=== PATIENT | female | born 1960 | race Caucasian/White ===

== ENCOUNTER 2018-08-20 10:23 | Emergency (ER) | payer OTHER ==
[~2018-08-20] VITALS: Ht 165.1 cm; Wt 72.6 kg
[~2018-08-20 10:23] MED LIST: ALBU90OI INH; ALBU90OI6 INH; AMOX500 PO; AZIT250 PO; Amoxicillin500 MG PO; Antivert25 MG PO; CODGUAEL PO; DICY20 PO; HYDACE10B PO; HYDACE5 PO; OXYACE5T PO; PRED20 PO; PROCODE120 PO; PSEU120ER PO; Prednisone20 MG PO; RANI150 PO; TRIM250 PO; Ultram50 MG PO
[2018-08-20 10:49] LABS: BASOPHILS ABSOLUTE AUTO 0.03 K/mm3 (0.00-0.23); BASOPHILS PERCENT AUTO 0 % (0-2); EOSINOPHILS ABSOLUTE AUTO 0.03 K/mm3 (0.00-0.68); EOSINOPHILS PERCENT AUTO 0 % (0-6); Hematocrit 37.1 % (33.0-51.0); Hemoglobin 12.8 g/dL (11.5-16.0); IMMATURE GRAN ABSOLUTE AUTO 0.03 K/mm3 (0.00-0.10); IMMATURE GRAN PERCENT AUTO 0 % (0-1); LYMPHOCYTES ABSOLUTE AUTO 2.82 K/mm3 (0.84-5.20); LYMPHOCYTES PERCENT AUTO 22 % (21-46); MONOCYTES ABSOLUTE AUTO 1.01 K/mm3 (0.16-1.47); MONOCYTES PERCENT AUTO 8 % (4-13); Mean Corpuscular HGB 31.9 pg (26.0-34.0); Mean Corpuscular HGB Conc 34.5 g/dL (31.5-36.5); Mean Corpuscular Volume 93 fL (80-100); NEUTROPHILS ABSOLUTE AUTO 8.77 K/mm3 (1.96-9.15); NEUTROPHILS PERCENT AUTO 69 % (41-73); Platelet Count 232 K/mm3 (150-400); RDW Coefficient Variation 11.8 % (11.7-14.2); RDW Standard Deviation 40.1 fL (35.1-46.3); Red Blood Cell Count 4.01 M/mm3 (3.80-5.20); White Blood Cell Count 12.69 K/mm3 (4.00-11.30)
[2018-08-20 11:18] LABS: Alanine Aminotransfer (ALT/SGP 112 U/L (12-78); Albumin, Blood 3.1 g/dL (3.4-5.0); Albumin/Globulin Ratio 0.7 (0.8-1.8); Alk Phos 103 U/L (50-136); Anion Gap 5 mmol/L (6-16); Aspartate Aminotrans (AST/SGOT 83 U/L (12-37); Bilirubin, Total 1.1 mg/dL (0.1-1.0); Blood Urea Nitrogen 23 mg/dL (8-24); Bun/Creatinine Ratio 40.3 (12.0-20.0); CO2, Blood 29 mmol/L (21-32); Calcium, Blood 8.6 mg/dL (8.5-10.1); Chloride, Blood 100 mmol/L (98-108); Creatinine, Blood 0.57 mg/dL (0.40-1.00); Globulin, Blood 4.3 g/dL (2.2-4.0); Glomerular Filtration Rate >60 (60-); Glucose, Blood 121 mg/dL (70-99); Potassium, Blood 3.9 mmol/L (3.5-5.5); Sodium, Blood 134 mmol/L (136-145); Total Protein, Blood 7.4 g/dL (6.4-8.2)
[2018-08-20] MEDS ORDERED: Protonix40 MG PO (12:35)
[2018-08-20] MEDS ORDERED: SUCR1 PO (12:35)
== END 2018-08-20 13:00 | disposition home or self-care (01) ==
LOC: ER 10:23
PROVIDERS: Emergency Medicine
DX: K29.70 Gastritis, unspecified, without bleeding (principal); K21.9 Gastro-esophageal reflux disease without esophagitis; Z88.5 Allergy status to narcotic agent
CPT/HCPCS: 36415; 80053; 83690; 85025; 93005; 93010; 96361; 96374; 99284-25; J2405; J7030

== ENCOUNTER 2022-06-11 11:15 | Emergency (ER) | payer OTHER ==
[~2022-06-11] VITALS: Ht 165.1 cm; Wt 68.0 kg
[~2022-06-11 11:15] MED LIST changes: +Protonix40 MG PO; +SUCR1 PO
[2022-06-11 12:53] LABS: BASOPHILS ABSOLUTE AUTO 0.04 K/mm3 (0.00-0.23); BASOPHILS PERCENT AUTO 1 % (0-2); EOSINOPHILS ABSOLUTE AUTO 0.12 K/mm3 (0.00-0.68); EOSINOPHILS PERCENT AUTO 2 % (0-6); Hematocrit 33.8 % (33.0-51.0); Hemoglobin 11.3 g/dL (11.5-16.0); IMMATURE GRAN ABSOLUTE AUTO 0.02 K/mm3 (0.00-0.10); IMMATURE GRAN PERCENT AUTO 0 % (0-1); LYMPHOCYTES ABSOLUTE AUTO 1.77 K/mm3 (0.84-5.20); LYMPHOCYTES PERCENT AUTO 23 % (21-46); MONOCYTES ABSOLUTE AUTO 0.61 K/mm3 (0.16-1.47); MONOCYTES PERCENT AUTO 8 % (4-13); Mean Corpuscular HGB 29.2 pg (26.0-34.0); Mean Corpuscular HGB Conc 33.4 g/dL (31.5-36.5); Mean Corpuscular Volume 87 fL (80-100); Mean Platelet Volume 11.4 fL (9.1-12.4); NEUTROPHILS ABSOLUTE AUTO 5.26 K/mm3 (1.96-9.15); NEUTROPHILS PERCENT AUTO 67 % (41-73); Platelet Count 164 K/mm3 (150-400); RDW Coefficient Variation 14.1 % (11.7-14.2); RDW Standard Deviation 44.6 fL (35.1-46.3); Red Blood Cell Count 3.87 M/mm3 (3.80-5.20); White Blood Cell Count 7.82 K/mm3 (4.00-11.30)
[2022-06-11 13:09] LABS: Albumin, Blood 1.6 g/dL (3.4-5.0); Albumin/Globulin Ratio 0.4 (0.8-1.8); Bilirubin, Direct 0.4 mg/dL (0.0-0.3); Bilirubin, Indirect 0.6 mg/dL (0.1-0.7); Bun/Creatinine Ratio 16.9 (12.0-20.0); Creatinine, Blood 0.65 mg/dL (0.40-1.00); Globulin, Blood 4.1 g/dL (2.2-4.0); Potassium, Blood 4.1 mmol/L (3.5-5.5); Total Protein, Blood 5.7 g/dL (6.4-8.2)
[2022-06-11 16:00] VITALS: BP 107/78
[2022-06-11] MEDS ORDERED: FAMO40 PO (16:19)
== END 2022-06-11 16:38 | disposition home or self-care (01) ==
LOC: ER 11:15
PROVIDERS: Physician Assistant
DX: R07.9 Chest pain, unspecified (principal); K21.9 Gastro-esophageal reflux disease without esophagitis; F17.200 Nicotine dependence, unspecified, uncomplicated; Z88.5 Allergy status to narcotic agent; Z79.899 Other long term (current) drug therapy
CPT/HCPCS: 71046; 71260; 80053; 82248; 83690; 83880; 84484; 85025; 85379; 93005; 93010; 93971; A9270; Q9967

== ENCOUNTER 2022-10-01 07:25 | Inpatient (IN) | payer OTHER ==
[~2022-10-01] VITALS: Ht 165.1 cm; Wt 84.0 kg
[~2022-10-01 07:25] MED LIST changes: +FAMO40 PO
[2022-10-01 08:02] LABS: BASOPHILS ABSOLUTE AUTO 0.03 K/mm3 (0.00-0.23); BASOPHILS PERCENT AUTO 1 % (0-2); EOSINOPHILS ABSOLUTE AUTO 0.18 K/mm3 (0.00-0.68); EOSINOPHILS PERCENT AUTO 3 % (0-6); Hematocrit 30.1 % (33.0-51.0); Hemoglobin 10.2 g/dL (11.5-16.0); IMMATURE GRAN ABSOLUTE AUTO 0.01 K/mm3 (0.00-0.10); IMMATURE GRAN PERCENT AUTO 0 % (0-1); LYMPHOCYTES ABSOLUTE AUTO 1.22 K/mm3 (0.84-5.20); LYMPHOCYTES PERCENT AUTO 19 % (21-46); MONOCYTES ABSOLUTE AUTO 0.67 K/mm3 (0.16-1.47); MONOCYTES PERCENT AUTO 11 % (4-13); Mean Corpuscular HGB 29.7 pg (26.0-34.0); Mean Corpuscular HGB Conc 33.9 g/dL (31.5-36.5); Mean Corpuscular Volume 88 fL (80-100); Mean Platelet Volume 10.5 fL (9.1-12.4); NEUTROPHILS PERCENT AUTO 67 % (41-73); Platelet Count 178 K/mm3 (150-400); RDW Standard Deviation 44.2 fL (35.1-46.3); Red Blood Cell Count 3.44 M/mm3 (3.80-5.20); White Blood Cell Count 6.31 K/mm3 (4.00-11.30)
[2022-10-01 08:30] LABS: Albumin, Blood 1.6 g/dL (3.4-5.0); Albumin/Globulin Ratio 0.4 (0.8-1.8); Bilirubin, Total 0.8 mg/dL (0.1-1.0); Bun/Creatinine Ratio 34.4 (12.0-20.0); Calcium, Blood 7.7 mg/dL (8.5-10.1); Creatinine, Blood 0.52 mg/dL (0.40-1.00); Globulin, Blood 4.2 g/dL (2.2-4.0); Potassium, Blood 3.8 mmol/L (3.5-5.5); Total Protein, Blood 5.8 g/dL (6.4-8.2)
[2022-10-01 11:06] LABS: International Normalized Ratio 1.36
[2022-10-01 11:26] VITALS: BP 139/84
--- NOTE | 2022-10-01 11:34 | NUR ---
THIS NURSE ASSUMED CARE OF PATIENT AT 1120. PT TRANSPORTED TO ROOM VIA GURNEY FROM ED. PT SHOWS AMS, AND IS NOT ALERT/ORIENTED. DOES NOT FOLLOW DIRECTIONS. BED IN LOW POSITION AND LOW WITH BED ALARM ON. VITALS ATTEMPTED, PT NON-COMPLIANT.
[2022-10-01 14:40] VITALS: BP 126/75
--- NOTE | 2022-10-01 14:43 | NUR ---
THIS NURSE ALONG WITH KIMBERLEE ADAMS ADMINISTERED THE PRESCRIBED ENEMA TO THE PT. PT TOLERATED IT POORLY, NOT FINDING THE TREATMENT PLEASANT. PT ASSISTED ONTO THE COMMODE WITH TWO NURSE ASSIST ALONG WITH FAMILY'S HELP DUE TO PATIENT'S INABILITY TO FOLLOW CUES. PT CONTINENT IN COMMODE AND HAD A LARGE BM. PT ASSISTED INTO BED AND IS RESTING. BED IN LOW POSITION, LOCKED, AND ALARM IS SET.
--- NOTE | 2022-10-01 18:09 | NUR ---
SHIFT SUMMARY PT EXPERIENCING AMS. PT ABLE TO RECOGNISE FAMILY AND STATE NAME. LACTULOSE ENEMA ADMINISTERED, BMX2 OCCURED DURING SHIFT. UNABLE TO ADMINISTER PO LACTULOSE DUE TO AMS. PT DOES NOT FOLLOW ORDERS AND IS IMPULSIVE TO AMBULATE TO BR. BED ALARM ON, FAMILY AT BEDSIDE.
[2022-10-01 19:41] VITALS: BP 151/92
[2022-10-01 21:51] VITALS: BP 152/101
--- NOTE | 2022-10-02 04:05 | NUR ---
SHIFT SUMMARY- PT ALERT TO SELF AND FAMILY, WHEN SHE WAKES. HOWEVER THE PT HAS BEEN INTERMITTENTLY UNCONCIOUS D/T ELEVATED AMMONIA LEVELS. PT RECIEVING Q6 LACTULOSE ENEMAS. PT SEEMS TO BE CLEARING A LITTLE. DAUGHTER STAYED THE NIGHT AND IS WILLING TO ASSIST STAFF WITH ANY OF THE PT NEEDS. DAUGHTER STATES THE PT DID NOT KNOW WHO SHE WAS WHEN THEY FIRST ARRIVED. NOW THE PT CLEARLY KNOWS WHO SHE IS. PT CURRENTLY IN BED, CALL [facility] FOR DVT PROF, BUT TO BE HELD IN THE AM D/T THE PT BEING SCHEDULED FOR PARACENTESIS.
[2022-10-02 04:52] VITALS: BP 153/89
[2022-10-02 05:35] LABS: BASOPHILS ABSOLUTE AUTO 0.04 K/mm3 (0.00-0.23); BASOPHILS PERCENT AUTO 1 % (0-2); EOSINOPHILS ABSOLUTE AUTO 0.15 K/mm3 (0.00-0.68); EOSINOPHILS PERCENT AUTO 3 % (0-6); Hematocrit 29.6 % (33.0-51.0); IMMATURE GRAN ABSOLUTE AUTO 0.01 K/mm3 (0.00-0.10); IMMATURE GRAN PERCENT AUTO 0 % (0-1); LYMPHOCYTES ABSOLUTE AUTO 1.89 K/mm3 (0.84-5.20); LYMPHOCYTES PERCENT AUTO 32 % (21-46); MONOCYTES ABSOLUTE AUTO 0.64 K/mm3 (0.16-1.47); MONOCYTES PERCENT AUTO 11 % (4-13); Mean Corpuscular HGB 29.9 pg (26.0-34.0); Mean Corpuscular HGB Conc 33.8 g/dL (31.5-36.5); Mean Corpuscular Volume 89 fL (80-100); Mean Platelet Volume 10.4 fL (9.1-12.4); NEUTROPHILS ABSOLUTE AUTO 3.24 K/mm3 (1.96-9.15); NEUTROPHILS PERCENT AUTO 54 % (41-73); Platelet Count 170 K/mm3 (150-400); RDW Coefficient Variation 13.7 % (11.7-14.2); RDW Standard Deviation 44.4 fL (35.1-46.3); Red Blood Cell Count 3.34 M/mm3 (3.80-5.20); White Blood Cell Count 5.97 K/mm3 (4.00-11.30)
[2022-10-02 06:20] LABS: Albumin, Blood 1.5 g/dL (3.4-5.0); Albumin/Globulin Ratio 0.4 (0.8-1.8); Bun/Creatinine Ratio 25.3 (12.0-20.0); Calcium, Blood 7.9 mg/dL (8.5-10.1); Creatinine, Blood 0.55 mg/dL (0.40-1.00); Potassium, Blood 3.3 mmol/L (3.5-5.5); Total Protein, Blood 5.5 g/dL (6.4-8.2)
[2022-10-02 07:22] VITALS: BP 142/91
[2022-10-02 11:26] LABS: Albumin, Body Fluid 0.2 g/dL
[2022-10-02 11:34] LABS: Percent Saturation 46.6 % (15.0-50.0)
[2022-10-02 11:38] LABS: Protein, Body Fluid 0.5 g/dL
[2022-10-02 11:46] LABS: Automated BF WBC Count 0.218 K/mm3 (0-999)
[2022-10-02 11:59] LABS: Body Fluid WBC Count 218 /mm3 (0-999)
[2022-10-02 13:06] LABS: RBC Count, Body Fluid 127 /mm3 (0-0)
[2022-10-02 13:14] LABS: Total Cell Count, Body Fluid 100
[2022-10-02 13:15] LABS: Appearance, Body Fluid Hazy (Clear); Color, Body Fluid L Yellow (None-Yellow)
[2022-10-02 15:20] VITALS: BP 141/85
--- NOTE | 2022-10-02 17:02 | NUR ---
SHIFT SUMMARY- PT IS ALERT, PLESANT AND COOPERATIVE. SHE BECAME MORE RESPONSIVE THE SHIFT PROGRESSED. WENT FOR A PARACENTISIS THIS SHIFT. 5L OF FLUID WAS REMOVED DRUING THE PROCEDURE. SHE WAS SWITCHED FROM RECTAL LACTULOSE TO ORAL AND IS TOLORATING ORAL INTAKE WELL. FAMILY HAS BEEN AT BEDSIDE. ECHO WAS PREFORMED THIS SHIFT. SHE IS AMBULATING TO THE RESTOOM. DIET WAS ADVANCED TO 2G LOW SODIUM AND PT IS EATING WELL. BED ALARM HAS BEEN ON THIS SHIFT. CALL LIGHT IS WITIN REACH AND BED IS IN THE LOW POSITION
[2022-10-02 19:09] VITALS: BP 147/83
--- NOTE | 2022-10-03 03:59 | NUR ---
SHIFT SUMMARY. SHIFT HAS BEEN UNREMARKABLE. PT IS AOX3-4, PLEASANT, COOPERATIVE WITH CARE. HAS SLEPT THROUGH MUCH OF SHIFT AFTER 2100 MED PASS AND SHIFT ASSESSMENT. SOME COMPLAINTS OF MILD BACK PAIN THIS MORNING ALLEVIATED WITH ONE TIME DOSE OF TORADOL ORDERED BY DR. PAULSON. NO COMPLAINTS SINCE. CALLS APPROPRIATELY. BED LOCKED IN LOWEST POSITION. CALL LIGHT LEFT WITHIN REACH.
[2022-10-03 04:46] VITALS: BP 156/98
[2022-10-03 06:00] LABS: Albumin, Blood 1.4 g/dL (3.4-5.0); Albumin/Globulin Ratio 0.4 (0.8-1.8); Bilirubin, Total 0.7 mg/dL (0.1-1.0); Bun/Creatinine Ratio 28.8 (12.0-20.0); Calcium, Blood 7.7 mg/dL (8.5-10.1); Creatinine, Blood 0.52 mg/dL (0.40-1.00); Globulin, Blood 3.9 g/dL (2.2-4.0); Potassium, Blood 3.4 mmol/L (3.5-5.5); Total Protein, Blood 5.3 g/dL (6.4-8.2)
[2022-10-03 07:29] VITALS: BP 137/86
[2022-10-03 16:46] VITALS: BP 146/78
--- NOTE | 2022-10-03 16:48 | NUR ---
SHIFT SUMMARY; PATIENT HAD PARACENTESIS AGAIN TODAY. 6.1 LITERS FLUID REMOVED TODAY. PER REPORT FROM RADIOLOGY SHE TOLERATED WELL. VITAL SIGNS UPON RETURN ARE WNL. PATIENT RESTED IN BED UPON RETURN FROM PROCEDURE. SHE ATE LUNCH AND HAS HAD NO KNOWN AFFECTS FROM THE PROCEDURE. SHE RECEIVED 100MG ALBUMIN IV PER ORDER UPON RETURN. SHE TAKES HER LACTULOSE WITHOUT DIFFICULTY AND IS AO X 3 TO 4 TODAY. IS EASILY REORIENTED WHEN CONFUSED. DAUGHTERS TAKE TURN REMAINING AT BEDSIDE FOR THIS PATIENT AND ASSIST HER IN HER GOING TO RESTROOM. PER REPORT SHE MAY DISCHARGE TOMORROW AND CASE MANAGEMENT DID GO TO ROOM TO SPEAK WITH FAMILY AND PATIENT ABOUT WHAT THAT WOULD LOOK LIKE.
[2022-10-03 21:04] VITALS: BP 149/80
[2022-10-04 02:46] VITALS: BP 154/88
--- NOTE | 2022-10-04 04:26 | NUR ---
SHIFT SUMMARY. SHIFT HAS BEEN UNREMARKABLE. AOX4, PLEASANT, COOPERATIVE WITH CARE. COMPLAINTS OF MILD HEADACHE EARLY IN SHIFT, ALLEVIATED WITH ONE TIME ORDER OF TORADOL PER HOSPITALIST LEE ANN. NO COMPLAINTS SINCE. PT HAS SLEPT THROUGH MOST OF SHIFT. BED LOCKED IN LOWEST POSITION. CALL LIGHT LEFT WITHIN REACH.
[2022-10-04 06:33] LABS: Bun/Creatinine Ratio 30.4 (12.0-20.0); Calcium, Blood 7.7 mg/dL (8.5-10.1); Creatinine, Blood 0.49 mg/dL (0.40-1.00); Potassium, Blood 3.5 mmol/L (3.5-5.5)
[2022-10-04 07:55] VITALS: BP 157/90
[2022-10-04] MEDS ORDERED: LACT10SY PO (14:01)
[2022-10-04] MEDS ORDERED: FURO20 PO (14:01)
[2022-10-04] MEDS ORDERED: VISBIOME 112.51 EACH PO (14:02)
[2022-10-04] MEDS ORDERED: Vitamin B Comple1 EA PO (14:02)
[2022-10-04] MEDS ORDERED: NICO21TP TOP (14:02)
[2022-10-04] MEDS ORDERED: SPIR50 PO (14:02)
[2022-10-04 14:57] VITALS: BP 143/84
--- NOTE | 2022-10-04 16:44 | NUR ---
SHIFT SUMMARY AND DISCHARGE PATIENT EASILY AROUSABLE AND INTERACTIVE WITH CARE. PATIENT EASILY CONFUSED AND FORGETFUL. FAMILY AT BEDSIDE. PATIENT AND FAMILY EDUCATED ON DIET, WHAT TO WATCH FOR AND WHEN TO CONTACT PCP OR RETURN TO THE HOSPITAL. DISCHARGE INSTRUCTIONS REVIEWED WITH PATIENT AND FAMILY. IV DC'D. ROOM CHECK DONE AND BELONGINGS RETURNED TO PATIENT. PATIENT TAKEN OUT VIA WHEELCHAIR.
[2022-10-06 14:10] LABS: HBSAG SCREEN Negative (Negative); HCV AB Reactive (Non Reactive); HCV LOG10 5.649 (.); HEP A AB, IGM Negative (Negative); HEP B CORE AB, TOT Negative (Negative); HEPATITIS C QUANTITATION 446000 IU/mL (.)
== END 2022-10-04 15:22 | disposition home health service (06) | DRG 442 ==
LOC: ER 07:25 → MEDS 07:26 → ENPENDDIS 10-04 12:53 → MEDS 10-04 15:22
PROVIDERS: Emergency Medicine; Family Medicine; Student in an Organized Health Care Education/Training Program; ADMIT Internal Medicine
PROC: 0W9G3ZZ Drainage of Peritoneal Cavity, Percutaneous Approach (ICD-10-PCS; principal; 2022-10-02)
DX: K76.82 Hepatic encephalopathy (principal); E72.20 Disorder of urea cycle metabolism, unspecified; I42.9 Cardiomyopathy, unspecified; K70.31 Alcoholic cirrhosis of liver with ascites; E88.09 Other disorders of plasma-protein metabolism, not elsewhere classified; K21.9 Gastro-esophageal reflux disease without esophagitis; D64.9 Anemia, unspecified; F10.90 Alcohol use, unspecified, uncomplicated; E11.9 Type 2 diabetes mellitus without complications; R01.1 Cardiac murmur, unspecified; B19.20 Unspecified viral hepatitis C without hepatic coma; E87.6 Hypokalemia; R94.31 Abnormal electrocardiogram [ECG] [EKG]; F17.210 Nicotine dependence, cigarettes, uncomplicated; Z88.5 Allergy status to narcotic agent; Z79.899 Other long term (current) drug therapy; Z90.49 Acquired absence of other specified parts of digestive tract
CPT/HCPCS: 36415; 49083; 80048; 80053; 82042; 82140; 82728; 83036; 83540; 83550; 83605; 84100; 84157; 85025; 85060; 85610; 86704; 86708; 86803; 86850; 86900; 86901; 87070; 87075; 87205; 87340; 89051; 93005; 93010; 93306; 93971; 96365; 96375; 96376; 99285-25; A9270; G0378; G0480; J0696; J1650; J1885; J2060; J3411; P9047

== ENCOUNTER 2022-11-28 14:39 | Observation (INO) | payer OTHER ==
[~2022-11-28] VITALS: Ht 162.6 cm; Wt 63.5 kg
[~2022-11-28 14:39] MED LIST changes: +FURO20 PO; +LACT10SY PO; +NICO21TP TOP; +SPIR50 PO; +VISBIOME 112.51 EACH PO; +Vitamin B Comple1 EA PO
[2022-11-28 20:00] LABS: BASOPHILS ABSOLUTE AUTO 0.04 K/mm3 (0.00-0.23); BASOPHILS PERCENT AUTO 1 % (0-2); EOSINOPHILS ABSOLUTE AUTO 0.09 K/mm3 (0.00-0.68); EOSINOPHILS PERCENT AUTO 1 % (0-6); Hematocrit 33.1 % (33.0-51.0); Hemoglobin 11.5 g/dL (11.5-16.0); IMMATURE GRAN ABSOLUTE AUTO 0.01 K/mm3 (0.00-0.10); IMMATURE GRAN PERCENT AUTO 0 % (0-1); LYMPHOCYTES ABSOLUTE AUTO 1.76 K/mm3 (0.84-5.20); LYMPHOCYTES PERCENT AUTO 25 % (21-46); MONOCYTES ABSOLUTE AUTO 0.51 K/mm3 (0.16-1.47); MONOCYTES PERCENT AUTO 7 % (4-13); Mean Corpuscular HGB 30.9 pg (26.0-34.0); Mean Corpuscular HGB Conc 34.7 g/dL (31.5-36.5); Mean Corpuscular Volume 89 fL (80-100); Mean Platelet Volume 10.9 fL (9.1-12.4); NEUTROPHILS ABSOLUTE AUTO 4.73 K/mm3 (1.96-9.15); NEUTROPHILS PERCENT AUTO 66 % (41-73); Platelet Count 150 K/mm3 (150-400); RDW Standard Deviation 45.5 fL (35.1-46.3); Red Blood Cell Count 3.72 M/mm3 (3.80-5.20); White Blood Cell Count 7.14 K/mm3 (4.00-11.30)
[2022-11-28 20:19] LABS: Albumin, Blood 2.1 g/dL (3.4-5.0); Albumin/Globulin Ratio 0.4 (0.8-1.8); Bilirubin, Total 0.9 mg/dL (0.1-1.0); Bun/Creatinine Ratio 28.6 (12.0-20.0); Calcium, Blood 8.4 mg/dL (8.5-10.1); Creatinine, Blood 0.77 mg/dL (0.40-1.00); Globulin, Blood 4.7 g/dL (2.2-4.0); Potassium, Blood 4.1 mmol/L (3.5-5.5); Total Protein, Blood 6.8 g/dL (6.4-8.2)
[2022-11-29 01:22] VITALS: BP 118/71
--- NOTE | 2022-11-29 01:25 | NUR ---
NEW ADMIT PT ARRIVED TO ROOM 352 FROM THE ER AT 0125 VIA WHEELCHAIR. PT DAUGHTER AT PT SIDE. PT ARRIVED WITH PT BELONGING BAG. ABLE TO TRANFER TO BED INDEPENDENTLY.
[2022-11-29] MEDS ORDERED: VITAMIN D325 MC3 PO (01:31)
[2022-11-29 02:44] VITALS: BP 115/59
[2022-11-29 06:17] LABS: Albumin, Blood 1.8 g/dL (3.4-5.0); Albumin/Globulin Ratio 0.4 (0.8-1.8); Bilirubin, Total 0.6 mg/dL (0.1-1.0); Bun/Creatinine Ratio 23.9 (12.0-20.0); Calcium, Blood 8.1 mg/dL (8.5-10.1); Creatinine, Blood 0.92 mg/dL (0.40-1.00); Globulin, Blood 4.3 g/dL (2.2-4.0); Potassium, Blood 4.2 mmol/L (3.5-5.5); Total Protein, Blood 6.1 g/dL (6.4-8.2)
--- NOTE | 2022-11-29 06:34 | NUR ---
SHIFT SUMMARY PT ALERT AND ORIENTED TO SELF, PERSON, PLACE, AND SITUATION WITH CONFUSION AT TIMES. PTS DAUGHTER IS IN AT BEDSIDE. PT IS ABLE TO AMBULATE TO THE BATHROOM INDEPENDENTLY. PT IS PLEASANT AND COOPERATIVE WITH CARE. PT STATES SHE IS WORRIED ABOUT BEING ABLE TO CARE FOR HERSELF AT HOME WHEN SHE IS SICK. DAUGHTER MENTIONED THAT THEY HAVE AN APPLICATION TO APPLY FOR IN HOME CAREGIVERS. PT IS ABLE TO MAKE HER NEEDS KNOWN. BED IS LOCKED IN THE LOWEST POSITION WITH CALL LIGHT IN REACH.
[2022-11-29 07:38] VITALS: BP 119/56
[2022-11-29 11:53] LABS: Source, Urine Clean Catch
[2022-11-29 11:59] LABS: Appearance, Urine Hazy (Clear); Bilirubin, Urine Neg (Neg); Blood, Urine 5+ (Neg); Color, Urine Yellow (P-Yellow); Glucose Qualitative, Urine Neg (Neg); Ketones, Urine Neg (Neg); Leukocyte Esterase, Urine 1+ (Neg); Nitrite, Urine Pos (Neg); Protein, Urine 2+ (Neg); Urobilinogen, Urine 3+ (Normal)
[2022-11-29 12:12] LABS: Bacteria Many /hpf; Squamous Epithelial Cells Rare /hpf (Few)
[2022-11-29 15:23] VITALS: BP 126/80
--- NOTE | 2022-11-29 17:01 | NUR ---
SHIFT SUMMARY: NO ACUTE EVENTS. A&O X 2-3, CALM AND PLEASANT. DECLINED NICOTINE PATCH. CBG < 135 ALL DAY AND PT STATES SHE IS NOT DIABETIC. TAKING LACTULOSE ORDERED, HAD 3 BM'S THIS SHIFT, BUT DAUGHTER STATED THE FIRST TWO WERE VERY SMALL. SBA TO BR, GAIT IMPROVING. DENIED PAIN. IS HOPING TO BE D/C'D HOME TOMORROW.
[2022-11-29 19:26] VITALS: BP 120/75
--- NOTE | 2022-11-30 04:09 | NUR ---
SHIFT SUMMARY NOC PT A/O X 3. PLEASANT AND COOPERATIVE WITH CARE. PT UA CAME BACK POSITIVE FOR UTI AND PT STARTED ON IV ROCEPHIN LAST NIGHT. IV ACCESS REGAINED IN LFA. PT HAS BEEN DROWSY AND SLEPT MOST OF SHIFT. NO C/O OF PAIN BESIDES DURING IV START ATTEMPTS. PT DAUGHTER IN ROOM AND STAYED NIGHT. PT WAS EXPECTED TO DISCHARGE TODAY, BUT UNCLEAR CURRENTLY IF THAT IS STILL THE PLAN DUE TO IV ABX STARTING. PT IS CURRENTLY RESTING WITH BED ALARM ON, BED IN LOWEST POSITION, AND CALL LIGHT WITHIN REACH.
[2022-11-30 04:23] VITALS: BP 115/64
[2022-11-30 05:49] LABS: BASOPHILS ABSOLUTE AUTO 0.04 K/mm3 (0.00-0.23); BASOPHILS PERCENT AUTO 1 % (0-2); EOSINOPHILS ABSOLUTE AUTO 0.17 K/mm3 (0.00-0.68); EOSINOPHILS PERCENT AUTO 3 % (0-6); Hematocrit 33.9 % (33.0-51.0); Hemoglobin 11.5 g/dL (11.5-16.0); IMMATURE GRAN ABSOLUTE AUTO 0.02 K/mm3 (0.00-0.10); IMMATURE GRAN PERCENT AUTO 0 % (0-1); LYMPHOCYTES ABSOLUTE AUTO 1.45 K/mm3 (0.84-5.20); LYMPHOCYTES PERCENT AUTO 23 % (21-46); MONOCYTES ABSOLUTE AUTO 0.68 K/mm3 (0.16-1.47); MONOCYTES PERCENT AUTO 11 % (4-13); Mean Corpuscular HGB 30.4 pg (26.0-34.0); Mean Corpuscular HGB Conc 33.9 g/dL (31.5-36.5); Mean Corpuscular Volume 90 fL (80-100); Mean Platelet Volume 10.8 fL (9.1-12.4); NEUTROPHILS ABSOLUTE AUTO 4.06 K/mm3 (1.96-9.15); NEUTROPHILS PERCENT AUTO 63 % (41-73); Platelet Count 131 K/mm3 (150-400); RDW Coefficient Variation 13.8 % (11.7-14.2); RDW Standard Deviation 45.1 fL (35.1-46.3); Red Blood Cell Count 3.78 M/mm3 (3.80-5.20); White Blood Cell Count 6.42 K/mm3 (4.00-11.30)
[2022-11-30 06:18] LABS: Albumin, Blood 1.9 g/dL (3.4-5.0); Albumin/Globulin Ratio 0.4 (0.8-1.8); Bilirubin, Total 1.1 mg/dL (0.1-1.0); Bun/Creatinine Ratio 29.3 (12.0-20.0); Calcium, Blood 8.4 mg/dL (8.5-10.1); Creatinine, Blood 0.65 mg/dL (0.40-1.00); Globulin, Blood 4.5 g/dL (2.2-4.0); Potassium, Blood 4.1 mmol/L (3.5-5.5); Total Protein, Blood 6.4 g/dL (6.4-8.2)
[2022-11-30 07:49] VITALS: BP 118/73
[2022-11-30] MEDS ORDERED: CIPR500 PO (11:15)
--- NOTE | 2022-11-30 11:52 | NUR ---
PATIENT DISCHARGED TO HOME ACCOMPANIED BY HER DAUGHTER. IV SALINE LOCK REMOVED WITHOUT INCIDENT. PT AND DAUGHTER VERBALIZED UNDERSTANDING OF D/C INSTRUCTIONS. OFF UNIT VIA W/C AT 1153. NO PERSONAL BELONGINGS LEFT BEHIND IN ROOM.
== END 2022-11-30 11:53 | disposition home or self-care (01) ==
LOC: ER 14:39 → MEDS 14:40 → ENPENDDIS 11-30 11:17 → MEDS 11-30 11:53
PROVIDERS: Family Medicine; Internal Medicine; Student in an Organized Health Care Education/Training Program; ADMIT Student in an Organized Health Care Education/Training Program
DX: K76.82 Hepatic encephalopathy (principal); N39.0 Urinary tract infection, site not specified; K21.9 Gastro-esophageal reflux disease without esophagitis; F17.210 Nicotine dependence, cigarettes, uncomplicated; R73.9 Hyperglycemia, unspecified; Z88.5 Allergy status to narcotic agent; Z91.148 Patient's other noncompliance with medication regimen for other reason
CPT/HCPCS: 36415; 80053; 81001; 82140; 82947; 83036; 85025; 87077; 87086; 87186; 93005; 93010; 96360; 96361; 96365; 96366; 96372; 99285-25; A9270; G0008; G0378; J0696; J1650; J7030; Q2036

== ENCOUNTER → 2023-01-03 | Outpatient (CLI) | payer OTHER ==
[~2023-01-03] MED LIST changes: +CIPR500 PO; +VITAMIN D325 MC3 PO
[2023-01-13 13:08] LABS: HPV GENOTYPE 16 Not Detected; HPV GENOTYPE 18 Not Detected; HPV HIGH RISK Not Detected; HPV SOURCE Cervical
== END ==
LOC: LAB 17:26 → LAB SHORT 17:26
PROVIDERS: Physician Assistant
DX: Z01.419 Encounter for gynecological examination (general) (routine) without abnormal findings (principal)
CPT/HCPCS: 87624; G0123

== ENCOUNTER → 2023-03-19 | Outpatient (CLI) | payer OTHER ==
[2023-03-20 12:07] LABS: Stool Occult Bld Immuno 1 Negative (NEGATIVE)
== END | disposition home or self-care (01) ==
LOC: LAB SHORT 10:00 → LAB 10:00
PROVIDERS: Physician Assistant
DX: Z12.11 Encounter for screening for malignant neoplasm of colon (principal); Z12.12 Encounter for screening for malignant neoplasm of rectum
CPT/HCPCS: G0328

== ENCOUNTER 2023-06-01 11:54 | Observation (INO) | payer OTHER ==
[~2023-06-01] VITALS: Ht 165.1 cm; Wt 74.7 kg
[2023-06-01 12:52] LABS: BASOPHILS ABSOLUTE AUTO 0.07 K/mm3 (0.00-0.23); BASOPHILS PERCENT AUTO 1 % (0-2); EOSINOPHILS ABSOLUTE AUTO 0.04 K/mm3 (0.00-0.68); EOSINOPHILS PERCENT AUTO 0 % (0-6); IMMATURE GRAN ABSOLUTE AUTO 0.05 K/mm3 (0.00-0.10); IMMATURE GRAN PERCENT AUTO 0 % (0-1); LYMPHOCYTES ABSOLUTE AUTO 1.56 K/mm3 (0.84-5.20); LYMPHOCYTES PERCENT AUTO 14 % (21-46); MONOCYTES PERCENT AUTO 9 % (4-13); Mean Corpuscular HGB 30.2 pg (26.0-34.0); Mean Corpuscular HGB Conc 32.4 g/dL (31.5-36.5); Mean Corpuscular Volume 93 fL (80-100); Mean Platelet Volume 10.9 fL (9.1-12.4); NEUTROPHILS ABSOLUTE AUTO 8.68 K/mm3 (1.96-9.15); NEUTROPHILS PERCENT AUTO 76 % (41-73); Platelet Count 162 K/mm3 (150-400); RDW Coefficient Variation 15.2 % (11.7-14.2); RDW Standard Deviation 51.8 fL (35.1-46.3); Red Blood Cell Count 3.98 M/mm3 (3.80-5.20)
[2023-06-01 13:10] LABS: Albumin, Blood 1.9 g/dL (3.4-5.0); Albumin/Globulin Ratio 0.4 (0.8-1.8); Bilirubin, Total 2.5 mg/dL (0.1-1.0); Bun/Creatinine Ratio 37.2 (12.0-20.0); Calcium, Blood 8.1 mg/dL (8.5-10.1); Creatinine, Blood 0.65 mg/dL (0.40-1.00); Globulin, Blood 4.7 g/dL (2.2-4.0); Potassium, Blood 4.4 mmol/L (3.5-5.5); Total Protein, Blood 6.6 g/dL (6.4-8.2)
[2023-06-01] MEDS ORDERED: Lactulose 20 GM/30 ML UDC PO ONE (13:10)
[2023-06-01 13:34] LABS: PCO2 Venous 38.1 mmHg (38-42)
[2023-06-01 13:35] LABS: Base Excess Venous -1.6 mmol/L
[2023-06-01] MEDS ORDERED: Lactulose 20 GM/30 ML UDC PO SCH (17:00)
--- NOTE | 2023-06-01 18:29 | NUR ---
PT ADMIT FROM ER. ALERT AND CONFUSED, UNABLE TO COMPLETE THE ADMISSION DUE TO COGNITION. CALM AND COOPERATIVE. UNSURE OF CURRENT MEDS. ABLE TO ANSWER SIMPLE QUESTIONS. BED ALARM ON WITH CALL LIGHT IN REACH.
[2023-06-01 20:21] VITALS: BP 151/77
[2023-06-02 05:20] LABS: BASOPHILS ABSOLUTE AUTO 0.05 K/mm3 (0.00-0.23); BASOPHILS PERCENT AUTO 1 % (0-2); EOSINOPHILS ABSOLUTE AUTO 0.15 K/mm3 (0.00-0.68); EOSINOPHILS PERCENT AUTO 2 % (0-6); Hematocrit 31.5 % (33.0-51.0); Hemoglobin 10.5 g/dL (11.5-16.0); IMMATURE GRAN ABSOLUTE AUTO 0.04 K/mm3 (0.00-0.10); IMMATURE GRAN PERCENT AUTO 0 % (0-1); LYMPHOCYTES ABSOLUTE AUTO 2.06 K/mm3 (0.84-5.20); LYMPHOCYTES PERCENT AUTO 22 % (21-46); MONOCYTES ABSOLUTE AUTO 1.23 K/mm3 (0.16-1.47); MONOCYTES PERCENT AUTO 13 % (4-13); Mean Corpuscular HGB 30.3 pg (26.0-34.0); Mean Corpuscular HGB Conc 33.3 g/dL (31.5-36.5); Mean Corpuscular Volume 91 fL (80-100); Mean Platelet Volume 11.1 fL (9.1-12.4); NEUTROPHILS ABSOLUTE AUTO 5.76 K/mm3 (1.96-9.15); NEUTROPHILS PERCENT AUTO 62 % (41-73); Platelet Count 144 K/mm3 (150-400); RDW Coefficient Variation 15.1 % (11.7-14.2); RDW Standard Deviation 49.6 fL (35.1-46.3); Red Blood Cell Count 3.46 M/mm3 (3.80-5.20); White Blood Cell Count 9.29 K/mm3 (4.00-11.30)
[2023-06-02 05:36] LABS: International Normalized Ratio 1.25; Prothrombin Time Results 13.2 Sec (9.7-11.5)
[2023-06-02 05:39] VITALS: BP 130/76
[2023-06-02 06:03] LABS: Albumin, Blood 1.8 g/dL (3.4-5.0); Albumin/Globulin Ratio 0.4 (0.8-1.8); Bilirubin, Total 1.9 mg/dL (0.1-1.0); Bun/Creatinine Ratio 35.4 (12.0-20.0); Calcium, Blood 8.1 mg/dL (8.5-10.1); Creatinine, Blood 0.65 mg/dL (0.40-1.00); Globulin, Blood 4.2 g/dL (2.2-4.0); Magnesium, Blood 1.9 mg/dL (1.6-2.4); Phosphorus, Blood 2.2 mg/dL (2.5-4.9); Potassium, Blood 4.2 mmol/L (3.5-5.5)
--- NOTE | 2023-06-02 07:37 | NUR ---
Shift Summary Pt AOx2-3, taking lactulose as scheduled. No BMs noted so far. Daughter stayed the night at bedside and said pt went to the bathroom once but she is unsure what she did. Pt sleeping soundly this AM and not waking up for bedside report.
[2023-06-02 07:39] VITALS: BP 119/84
[2023-06-02] MEDS ORDERED: Enoxaparin 40 MG/0.4 ML SYR SC SCH (09:00)
[2023-06-02] MEDS ORDERED: Spironolactone 50 MG Tab PO SCH (09:00)
[2023-06-02] MEDS ORDERED: Furosemide 20 MG Tab PO SCH (09:00)
[2023-06-02] MEDS ORDERED: Bisacodyl 10 MG Supp PR ONE ×2 (10:10→13:05)
[2023-06-02] MEDS ORDERED: Albumin (Human) 25gm/100ml 100 ML IV SCH (11:20)
[2023-06-02 12:11] LABS: Source, Urine Clean Catch
[2023-06-02 12:17] LABS: Appearance, Urine Hazy (Clear); Blood, Urine 5+ (Neg); Color, Urine Yellow (P-Yellow); Glucose Qualitative, Urine Neg (Neg); Ketones, Urine 1+ (Neg); Leukocyte Esterase, Urine 1+ (Neg); Nitrite, Urine Pos (Neg); Protein, Urine 2+ (Neg); Urobilinogen, Urine 3+ (Normal)
[2023-06-02 12:23] LABS: Bilirubin, Urine 1+ (Neg)
[2023-06-02 12:25] LABS: Bacteria Many /hpf; Mucus Light (0-Heavy); Squamous Epithelial Cells Rare /hpf (Few)
[2023-06-02 12:26] LABS: Yeast/Fungi Urine Few /hpf
[2023-06-02] MEDS ORDERED: LEVO750 PO (15:48)
--- NOTE | 2023-06-02 17:22 | NUR ---
SHIFT SUMMARY PATIENT COMPLAINING OF INCREASING ABDOMINAL DISTENTION WITH SHARP INTERMITTENT PAIN TO UPPER LEFT QUADRANT. INFORMED DR LY WHO PERFORMED US AND THEN ASSIST WITH PARACENTESIS, REMOVING 2000ML OF SEROUS COLORED CLEAR FLUID. PT VSS, LUNG SOUNDS IMPROVED. PT REPORTED FEELING MUCH BETTER, SMILING, REQUESTING ADDITIONAL FOOD POST. INCISION COVERED WITH BANDAID, CLEAN AND INTACT. PATIENT TAKING LACTULOSE WELL, MEDIUM BOWEL MOVEMENT IN RESULT. A/O X3. DISCHARGED THIS SHIFT WITH DAUGHTER TO DRIVE. IV REMOVED WITHOUT COMPLICATION. DISCHARGE PACKET GIVEN AND REVIEWED WITH DAUGHTER AND PT. DAUGHTER VERBALIZED UNDERSTANDING AND GAVE TEACHBACK, PT UNABLE TO GRASP DIFFERENCE BETWEEN LEVAQUIN AND LACTULOSE, RE EDUCATED, NO CHANGE. MEDS FAXED TO [facility].
== END 2023-06-02 16:12 | disposition home health service (06) ==
LOC: ER 11:54 → MEDS 11:55 → ER 17:30 → MEDS 17:54
PROVIDERS: Student in an Organized Health Care Education/Training Program; ADMIT Family Medicine
DX: K76.82 Hepatic encephalopathy (principal); K70.31 Alcoholic cirrhosis of liver with ascites; B18.2 Chronic viral hepatitis C; F19.10 Other psychoactive substance abuse, uncomplicated; F17.210 Nicotine dependence, cigarettes, uncomplicated; Z88.5 Allergy status to narcotic agent; Z79.899 Other long term (current) drug therapy
CPT/HCPCS: 36415; 76705; 76942; 80053; 81001; 82140; 82803; 83690; 83735; 84100; 85025; 85610; 87077; 87086; 87186; 93005; 93010; 96374; 96376; 99285-25; A9270; C1751; G0378; P9047

== ENCOUNTER 2023-07-31 22:54 | Inpatient (IN) | payer OTHER ==
[~2023-07-31] VITALS: Ht 162.6 cm; Wt 74.8 kg
[~2023-07-31 22:54] MED LIST changes: +Enoxaparin 40 MG/0.4 ML SYR SC SCH; +LEVO750 PO
[2023-07-31] MEDS ORDERED: NS 1,000 ML IV SCH (23:10)
[2023-07-31 23:16] LABS: BASOPHILS ABSOLUTE AUTO 0.03 K/mm3 (0.00-0.23); BASOPHILS PERCENT AUTO 0 % (0-2); EOSINOPHILS ABSOLUTE AUTO 0.11 K/mm3 (0.00-0.68); EOSINOPHILS PERCENT AUTO 1 % (0-6); Hematocrit 27.9 % (33.0-51.0); Hemoglobin 9.6 g/dL (11.5-16.0); IMMATURE GRAN ABSOLUTE AUTO 0.03 K/mm3 (0.00-0.10); IMMATURE GRAN PERCENT AUTO 0 % (0-1); LYMPHOCYTES ABSOLUTE AUTO 1.48 K/mm3 (0.84-5.20); LYMPHOCYTES PERCENT AUTO 19 % (21-46); MONOCYTES ABSOLUTE AUTO 0.67 K/mm3 (0.16-1.47); MONOCYTES PERCENT AUTO 9 % (4-13); Mean Corpuscular HGB 32.2 pg (26.0-34.0); Mean Corpuscular HGB Conc 34.4 g/dL (31.5-36.5); Mean Corpuscular Volume 94 fL (80-100); Mean Platelet Volume 11.3 fL (9.1-12.4); NEUTROPHILS ABSOLUTE AUTO 5.45 K/mm3 (1.96-9.15); NEUTROPHILS PERCENT AUTO 70 % (41-73); Platelet Count 159 K/mm3 (150-400); RDW Coefficient Variation 14.2 % (11.7-14.2); RDW Standard Deviation 48.6 fL (35.1-46.3); Red Blood Cell Count 2.98 M/mm3 (3.80-5.20); White Blood Cell Count 7.77 K/mm3 (4.00-11.30)
[2023-07-31 23:33] LABS: Acetaminophen, Random 2.5 ug/mL (10.0-30.0); Ethanol (Alcohol), Blood, Med <3 mg/dL
[2023-07-31 23:36] LABS: Alanine Aminotransfer (ALT/SGP 73 U/L (12-78); Albumin, Blood 1.7 g/dL (3.4-5.0); Albumin/Globulin Ratio 0.4 (0.8-1.8); Alk Phos 149 U/L (50-136); Anion Gap 12 mmol/L (3-11); Aspartate Aminotrans (AST/SGOT 94 U/L (12-37); Bilirubin, Total 1.4 mg/dL (0.1-1.0); Blood Urea Nitrogen 20 mg/dL (8-24); Bun/Creatinine Ratio 26.9 (12.0-20.0); CO2, Blood 23 mmol/L (21-32); Calcium, Blood 7.6 mg/dL (8.5-10.1); Chloride, Blood 111 mmol/L (98-108); Creatinine, Blood 0.74 mg/dL (0.40-1.00); Globulin, Blood 4.1 g/dL (2.2-4.0); Glomerular Filtration Rate 91 (60-); Glucose, Blood 128 mg/dL (70-99); Potassium, Blood 4.5 mmol/L (3.5-5.5); Sodium, Blood 141 mmol/L (136-145); Total Protein, Blood 5.8 g/dL (6.4-8.2)
[2023-07-31 23:37] LABS: Salicylate <1.7 mg/dL (2.8-20.0)
[2023-07-31] MEDS ORDERED: NS 1,000 ML IV ONE (23:45)
[2023-07-31] MEDS ORDERED: Ondansetron HCl 2 MG / ML 2ML Vial IV PRN (23:45)
[2023-07-31] MEDS ORDERED: Lactulose 200 GM/300 ML Enema 300ML BTL PR ONE (23:45)
--- NOTE | 2023-08-01 01:05 | NUR ---
PT HERE VIA [facility] FROM ER. DAUGHTER AT BEDSIDE - ASSISTING WITH ADMISSION QUESTIONS. PT IS NOT REDIRECTABLE, GETS IRRITATED, YELLS OUT. ASSISTED PT TO MEDICAL FLOOR BED WITH SEVERAL STAFF MEMBERS - PT NOT FOLLOWING DIRECTIONS WHEN ASKED. SEE ASSESSMENT FINDINGS. PT LIVES ALONG - HAS NO SIGNIFICANT OTHER, AND FAMILY CHECKS IN ON PT DAILY. PT'S FAMILY ASSISTS WITH FINANCES NEEDED. PT DOESN'T DRIVE. PT HAS A HISTORY OF HEP A AND C, AND CIRROSIS. PT NO LONGER DRINKS ETOH. PT IS NPO. CALL LIGHT AT BEDSIDE. BED IN LOW POSITION. BED ALARM ON.
[2023-08-01 01:20] VITALS: BP 139/84
[2023-08-01] MEDS ORDERED: Albumin (Human) 25gm/100ml 100 ML IV ONE (03:00)
[2023-08-01] MEDS ORDERED: CALCIUM GLUC IN NACL, ISO-OSM 50 ML IV ONE (03:00)
[2023-08-01 04:19] LABS: BASOPHILS ABSOLUTE AUTO 0.03 K/mm3 (0.00-0.23); BASOPHILS PERCENT AUTO 0 % (0-2); EOSINOPHILS ABSOLUTE AUTO 0.11 K/mm3 (0.00-0.68); EOSINOPHILS PERCENT AUTO 2 % (0-6); Hematocrit 30.2 % (33.0-51.0); Hemoglobin 10.5 g/dL (11.5-16.0); IMMATURE GRAN ABSOLUTE AUTO 0.04 K/mm3 (0.00-0.10); IMMATURE GRAN PERCENT AUTO 1 % (0-1); LYMPHOCYTES ABSOLUTE AUTO 1.53 K/mm3 (0.84-5.20); LYMPHOCYTES PERCENT AUTO 21 % (21-46); MONOCYTES ABSOLUTE AUTO 0.72 K/mm3 (0.16-1.47); MONOCYTES PERCENT AUTO 10 % (4-13); Mean Corpuscular HGB 32.6 pg (26.0-34.0); Mean Corpuscular HGB Conc 34.8 g/dL (31.5-36.5); Mean Corpuscular Volume 94 fL (80-100); Mean Platelet Volume 10.7 fL (9.1-12.4); NEUTROPHILS ABSOLUTE AUTO 4.76 K/mm3 (1.96-9.15); NEUTROPHILS PERCENT AUTO 66 % (41-73); Platelet Count 143 K/mm3 (150-400); RDW Coefficient Variation 14.1 % (11.7-14.2); RDW Standard Deviation 48.2 fL (35.1-46.3); Red Blood Cell Count 3.22 M/mm3 (3.80-5.20); White Blood Cell Count 7.19 K/mm3 (4.00-11.30)
[2023-08-01 04:41] LABS: Albumin, Blood 1.8 g/dL (3.4-5.0); Albumin/Globulin Ratio 0.4 (0.8-1.8); Bilirubin, Total 1.9 mg/dL (0.1-1.0); Bun/Creatinine Ratio 26.3 (12.0-20.0); Calcium, Blood 7.8 mg/dL (8.5-10.1); Creatinine, Blood 0.68 mg/dL (0.40-1.00); Globulin, Blood 4.2 g/dL (2.2-4.0); Potassium, Blood 4.1 mmol/L (3.5-5.5)
--- NOTE | 2023-08-01 05:00 | NUR ---
SHIFT SUMMARY - NO ACUTE CHANGES SINCE ADMIT. PT IS CURRENTLY SLEEPING. PT RECEIVED 1 (ONE) LACTULOSE ENEMA WITH GOOD RESULTS OF YELLOW SOFT BM. DAUGHTER IS SLEEPING OVER TONIGHT - ATTEMPTS ASSIST WITH REDIRECTION OF PT. PT CONTINUES CONFUSED, AND NOT REDIRECTABLE WHEN AWAKE. CONTINUES WITH AGITATION/IRRITABILITY. IV FLUIDS INFUSING WITHOUT COMPLICATIONS. WILL CONTINUE TO MONITOR UNTIL AM SHIFT CHANGE.
--- NOTE | 2023-08-01 06:27 | NUR ---
IV FLUIDS OFF PER ORDER
[2023-08-01 07:38] VITALS: BP 124/75
[2023-08-01] MEDS ORDERED: Lactulose 200 GM/300 ML Enema 300ML BTL PR SCH ×2 (08:00)
[2023-08-01] MEDS ORDERED: Lactulose 20 GM/30 ML UDC PO ONE (10:10)
[2023-08-01] MEDS ORDERED: Lactulose 10 GM/15 ML UDC PO SCH (14:00)
[2023-08-01] MEDS ORDERED: Lactulose 20 GM/30 ML UDC PO SCH ×2 (14:00)
--- NOTE | 2023-08-01 14:57 | NUR ---
SHIFT SUMMARY Patient alert & oriented x4. Noted significant improvement in mentation with lactulose. Lactulose regimen changed from PRN to oral. Imaging conducte dthis AM, awaiting results. VSS. Will continue plan of care.
[2023-08-01 15:11] LABS: Source, Urine Clean Catch
[2023-08-01 15:18] VITALS: BP 118/72
[2023-08-01 15:22] LABS: Appearance, Urine Cloudy (Clear); Bilirubin, Urine Neg (Neg); Blood, Urine 5+ (Neg); Color, Urine Yellow (P-Yellow); Glucose Qualitative, Urine Neg (Neg); Ketones, Urine 1+ (Neg); Leukocyte Esterase, Urine 2+ (Neg); Nitrite, Urine Pos (Neg); Protein, Urine 1+ (Neg); Urobilinogen, Urine 2+ (Normal)
[2023-08-01 15:35] LABS: U Amphetamine Screen DETECTED; U Barbituate Screen Not Detected; U Benzodiazapine Screen Not Detected; U Buprenorphine Screen Not Detected; U Cannabinoids Screen Not Detected; U Cocaine Screen Not Detected; U Methadone Screen Not Detected; U Methamphetamine Screen DETECTED; U Opiates Screen Not Detected; U Oxycodone Screen Not Detected; U Phencyclidine Screen Not Detected
[2023-08-01 16:44] LABS: Bacteria Many /hpf; Mucus Light (0-Heavy); Red Blood Cells, Urine 0-2 /hpf (0-2); Squamous Epithelial Cells Mod /hpf (Few); White Blood Cells, Urine 25-50 /hpf (0-5)
[2023-08-01 19:38] VITALS: BP 122/64
[2023-08-02 03:29] VITALS: BP 108/61
--- NOTE | 2023-08-02 04:28 | NUR ---
SHIFT SUMMARY PATIENT HAD NO ACUTE CHANGES. AXOX 3-4 AND SBA TO BR. DAUGHTER STAYED IN ROOM AND ASSIST WITH CARE. DENIES CHEST PAIN & SOB. NAUSEOUS X ONE AND IV ZOFRAN GIVEN WITH GOOD EFFECT. PIV INTACT. SCHEDULE ENULOSE WITH MULTIPLE BM'S. REPORTED R HAND PAIN AND ICE PACK PROVIDED. SLEPT ON/OFF. CALL LIGHT IN REACH. BED IN LOWEST POSITION. WILL CONTINUE TO MONITOR UNTIL DAY SHIFT NURSE ASSUMES CARE.
--- NOTE | 2023-08-02 06:17 | NUR ---
PATIENT REFUSED LAB AT THIS TIME. WCTM.
[2023-08-02 07:37] VITALS: BP 119/76
[2023-08-02 09:27] LABS: BASOPHILS ABSOLUTE AUTO 0.05 K/mm3 (0.00-0.23); BASOPHILS PERCENT AUTO 1 % (0-2); EOSINOPHILS ABSOLUTE AUTO 0.16 K/mm3 (0.00-0.68); EOSINOPHILS PERCENT AUTO 3 % (0-6); Hematocrit 28.8 % (33.0-51.0); Hemoglobin 9.7 g/dL (11.5-16.0); IMMATURE GRAN ABSOLUTE AUTO 0.01 K/mm3 (0.00-0.10); IMMATURE GRAN PERCENT AUTO 0 % (0-1); LYMPHOCYTES ABSOLUTE AUTO 1.22 K/mm3 (0.84-5.20); LYMPHOCYTES PERCENT AUTO 20 % (21-46); MONOCYTES ABSOLUTE AUTO 0.55 K/mm3 (0.16-1.47); MONOCYTES PERCENT AUTO 9 % (4-13); Mean Corpuscular HGB 32.2 pg (26.0-34.0); Mean Corpuscular HGB Conc 33.7 g/dL (31.5-36.5); Mean Corpuscular Volume 96 fL (80-100); Mean Platelet Volume 10.8 fL (9.1-12.4); NEUTROPHILS ABSOLUTE AUTO 4.08 K/mm3 (1.96-9.15); NEUTROPHILS PERCENT AUTO 67 % (41-73); Platelet Count 126 K/mm3 (150-400); RDW Coefficient Variation 13.9 % (11.7-14.2); RDW Standard Deviation 48.6 fL (35.1-46.3); Red Blood Cell Count 3.01 M/mm3 (3.80-5.20); White Blood Cell Count 6.07 K/mm3 (4.00-11.30)
[2023-08-02 09:54] LABS: Albumin, Blood 1.8 g/dL (3.4-5.0); Albumin/Globulin Ratio 0.5 (0.8-1.8); Bilirubin, Total 1.6 mg/dL (0.1-1.0); Bun/Creatinine Ratio 30.4 (12.0-20.0); Calcium, Blood 7.9 mg/dL (8.5-10.1); Creatinine, Blood 0.66 mg/dL (0.40-1.00); Globulin, Blood 3.8 g/dL (2.2-4.0); Potassium, Blood 4.4 mmol/L (3.5-5.5); Total Protein, Blood 5.6 g/dL (6.4-8.2)
--- NOTE | 2023-08-02 16:09 | NUR ---
DISCHARGE SUMMARY PT D/C THIS SHIFT. PT WAS EDUCATED ON THE IMPORTANCE OF TAKING HER LACTULOSE PERSCRIBED AND TO MAKE HER FOLLOW UP APPT. PT VERBALIZED UNDERSTANDING. P/T LEFT FACILITY ACCOMPANIED BY SON VIA [facility].
--- NOTE | 2023-08-02 16:26 | NUR ---
DISCHARGE NOTE- PT WAS GIVEN VERBAL AND WRITTEN DISCHARGE INSTRUCTIONS AND ACKNOWLEDGED UNDERSTANDING OF THEM. PT ESCORTED OUT IN HER NEW WC. IV DC'D PRIOR TO DISCHARGE NO S&S OF DISTRESS NOTED AT THE TIME OF DISCHARGE. CALED ABOUT THE PT URINE SAMPLE PRIOR TO DC THE PT STATES SHE HAS A UTI. NO ABX NEEDED AT THIS TIME PER DR DELANEY.
== END 2023-08-02 16:15 | disposition home health service (06) | DRG 441 ==
LOC: ER 22:54 → MEDS 23:57
PROVIDERS: Emergency Medicine; Internal Medicine; ADMIT Internal Medicine
DX: K76.82 Hepatic encephalopathy (principal); G93.41 Metabolic encephalopathy; N39.0 Urinary tract infection, site not specified; K76.6 Portal hypertension; F15.10 Other stimulant abuse, uncomplicated; B18.2 Chronic viral hepatitis C; F17.210 Nicotine dependence, cigarettes, uncomplicated; E86.0 Dehydration; K70.31 Alcoholic cirrhosis of liver with ascites; E88.09 Other disorders of plasma-protein metabolism, not elsewhere classified; E83.51 Hypocalcemia; D63.8 Anemia in other chronic diseases classified elsewhere; K21.9 Gastro-esophageal reflux disease without esophagitis; Z91.148 Patient's other noncompliance with medication regimen for other reason; Z88.8 Allergy status to other drugs, medicaments and biological substances; Z79.01 Long term (current) use of anticoagulants; Z79.2 Long term (current) use of antibiotics; Z79.899 Other long term (current) drug therapy; Z90.49 Acquired absence of other specified parts of digestive tract
CPT/HCPCS: 36415; 70450; 71046; 76705; 80053; 81001; 82140; 82947; 85025; 87086; 93005; 93010; 96360; 99285-25; A9270; G0480; J0612; J1650; J2405; J7030; P9047